=== PATIENT | male | born 1970 | race Caucasian/White ===

== ENCOUNTER 2020-10-29 14:26 | Outpatient (REF) | payer MEDICAID, SELFPAY ==
--- NOTE | ~2020-10-29 | XR_ITS ---
EXAMINATION: XR LUMBOSACRAL SPINE WITH OBLIQUES CLINICAL INFORMATION: Low back pain and right-sided sciatica COMPARISON: None TECHNIQUE: AP, both oblique, and lateral views of the lumbar spine. Lateral view of the lumbosacral junction. FINDINGS: There is mild curvature of the lower lumbar sacral spine to the right. Bone alignment is otherwise normal. No fracture or dislocation is seen. Disc spaces are normal. No pars defect is seen. There is mild lower lumbar spine facet arthritis. XR/XR lumbar spine 4V min IMPRESSION: Mild lower lumbar spine facet arthritis.
== END 2020-10-29 14:27 | disposition home or self-care (01) ==
LOC: HO.XRAY 14:26
PROVIDERS: Visit Provider Registered Nurse Community Health
DX: M54.41 Lumbago with sciatica, right side (principal)
CPT/HCPCS: 72110

== ENCOUNTER 2021-03-05 16:09 | Emergency (ER) | payer MEDICAID, SELFPAY ==
[2021-03-05 16:49] VITALS: BP 128/50; PULSE 81; RESP 18; TEMP 37.1; O2SAT 100; BMI 24.4
--- NOTE | 2021-03-05 17:13 | ED_ITS ---
HPI - Neck Pain/Injury General Chief Complaint: Neck Pain/Injury Stated Complaint: abscess Time Seen by Provider: 03/05/21 17:13 Source: patient Mode of arrival: ambulatory Limitations: no limitations History of Present Illness HPI Narrative: Patient is a 50-year-old male with no significant past medical history who presents with a shaving injury on his right side of his neck. He states he has been using baking soda in peroxide every day to try and heal it, he has also used hydrocortisone. He states that throughout the week it has become red and hard and painful. He has not been shaving during this time. Any denies any fevers. Related Data Previous Rx's Medication Instructions Recorded doxycycline hyclate 100 mg tablet 100 mg PO BID 10 Days #20 tab 03/05/21 Allergies Allergy/AdvReac Type Severity Reaction Status Date / Time No Known Allergies Allergy Unverified 03/19/20 18:45 [No Known Allergies*] Review of Systems Review of Systems: Yes all other systems are reviewed and are negative PMFSH Social History Social History Advance Directives: No Advance Directives Information Provided: No Physical Exam Vital Signs: Vital Signs: Last Vital Signs Temp 98.8 F 03/05/21 16:49 Pulse 81 03/05/21 16:49 Resp 18 03/05/21 16:49 BP 128/50 L 03/05/21 16:49 Pulse Ox 100 03/05/21 16:49 Body Mass Index 24.4 Const: General: cooperative, healthy appearing, comfortable, no acute distress and well developed Orientation/consciousness: patient oriented x3 Limitations: no limitations HENMT: Head: Yes normal to inspection Eyes: General: appearance normal, both eyes and all related structures Neck: Neck: Yes full ROM and Yes no lymphadenopathy Resp: Effort & Inspection: normal respiratory effort and able to speak in complete sentences Skin: General skin exam: no ecchymosis, no erythema and induration (Right- sided base of neck, 2cm oval area of induration, TTP) Neuro: General: patient oriented x3 Extrem: General: Yes normal to inspection Discharge Plan Discharge Clinical Impression: Abscess of skin of neck Patient Disposition: Home, Self-Care Instructions: Abscess Follow-up (ED) Additional Instructions: As discussed, I have sent a prescription to your pharmacy for doxycycline. While you are taking this medication, please do not go out in the sun or your skin will turn red. Please use warm compresses on the area and do not shave while you are taking the antibiotics, you can resume shaving once the abscess is gone. As discussed, please do not continue using hydrogen peroxide on the area. You do not need to use any topical antibiotics. Prescriptions: New doxycycline hyclate 100 mg tablet 100 mg PO BID 10 Days Qty: 20 RF: 0
== END 2021-03-05 17:36 | disposition home or self-care (01) ==
PROVIDERS: Emergency Provider Internal Medicine
DX: L02.11 Cutaneous abscess of neck (principal); M54.2 Cervicalgia; Z79.899 Other long term (current) drug therapy
CPT/HCPCS: 99283

== ENCOUNTER 2025-06-12 10:53 | Outpatient (REF) | payer MEDICAID, SELFPAY ==
--- NOTE | ~2025-06-12 | XR_ITS ---
EXAMINATION: XR HIP 2 OR MORE VIEWS RIGHT HISTORY: pain COMPARISON: There are no prior studies available for comparison. FINDINGS: Two views of the right hip are submitted. Osseous mineralization is normal. There is no fracture or dislocation. There is mild joint space narrowing. The soft tissues are unremarkable. XR/XR hip RT min 2V IMPRESSION: Mild joint space narrowing. Electronically signed by: Cole Wasserman MD 06/12/2025 01:44 PM EST
--- NOTE | ~2025-06-12 | XR_ITS ---
EXAMINATION: XR SHOULDER, RIGHT CLINICAL INFORMATION: pain COMPARISON: None available. TECHNIQUE: Four views of the right shoulder. FINDINGS: Mild superior positioning of the distal clavicle at the acromioclavicular joint. No acute fracture or dislocation. Glenohumeral joint space is maintained. No abnormal soft tissue calcification. XR/XR shoulder RT min 2V IMPRESSION: Mild acromioclavicular malalignment, could reflect indeterminate sprain. Electronically signed by: Miguel Zhou MD 06/12/2025 01:42 PM [facility]
--- NOTE | ~2025-06-12 | XR_ITS ---
EXAMINATION: XR ANKLE, LEFT CLINICAL INFORMATION: pain COMPARISON: 03/07/2018. TECHNIQUE: AP, lateral, and mortise views of the left ankle. FINDINGS: No acute fracture, dislocation, or suspicious bone lesion. There is normal alignment. The ankle mortise is intact. The talar dome is normal. The subtalar joints and calcaneus are intact. Redemonstration of a well-corticated bony density subjacent to the lateral malleolus, likely on the basis of old trauma. Redemonstration of mild calcification of the interosseous membrane of the distal tibia/fibula, also likely on the basis of old injury. There is no soft tissue abnormality. XR/XR ankle LT 2V IMPRESSION: No acute bony or soft tissue abnormalities of the left ankle. Electronically signed by: Amauri Smith MD 06/12/2025 01:44 PM [facility]
== END 2025-06-12 10:54 | disposition home or self-care (01) ==
LOC: HO.HHCX 10:53
PROVIDERS: PCP Nurse Practitioner; Visit Provider Nurse Practitioner
DX: Z91.81 History of falling (principal)
CPT/HCPCS: 73030; 73502; 73600

== ENCOUNTER → 2025-06-12 11:14 | Outpatient (BNV) | payer MEDICAID, SELFPAY | PROVIDERS: PCP Nurse Practitioner; Visit Provider Radiology Diagnostic Radiology | DX: M16.11 Unilateral primary osteoarthritis, right hip (principal); M25.511 Pain in right shoulder; M25.572 Pain in left ankle and joints of left foot | CPT/HCPCS: 73030; 73502; 73600 ==

== ENCOUNTER 2025-06-13 09:13 | Outpatient (REF) | payer MEDICAID, SELFPAY ==
[2025-06-13 09:31] LABS: MANUAL DIFF FLAG NO
[2025-06-13 10:06] LABS: Hematocrit 43.4 % (42.0-52.0); Hemoglobin 15.3 g/dl (14.0-18.0); Imm Gran Abs Auto 0.02 X10*3/uL (0.00-0.03); Imm Gran Pct Auto 0.4 % (0.0-0.4); Lymphocytes Absolute Auto 1.3 X10*3/uL (1.2-4.9); Mean Corpuscular HGB Conc 35.3 g/dl (31.0-36.0); Mean Corpuscular Hemoglobin 32.6 pg (27.0-33.0); Mean Corpuscular Volume 92.3 fL (80.0-98.0); NRBC Abs Auto 0.000 X10*3/uL (0.0-0.012); NRBC Pct Auto 0.0 /100WBC (0.0-0.2); Platelet Count 246 X10*3/uL (160-400); Red Blood Count 4.70 X10*6/uL (4.60-5.80); White Blood Count 4.7 X10*3/uL (4.8-10.8)
[2025-06-13 10:19] LABS: Alanine Aminotransferase 33 U/L (0-40); Albumin Level 4.8 g/dL (3.5-5.0); Alkaline Phosphatase 59 U/L (39-117); Anion Gap 9 (12-20); Aspartate Amino Transferase 30 U/L (5-37); Blood Urea Nitrogen 11 mg/dL (9-16); Calcium 9.0 mg/dL (8.4-10.2); Carbon Dioxide 30 mmol/L (22-29); Chloride 106 mmol/L (96-108); Cholesterol 175 mg/dL (<200); Estimated Glomerular Filt Rate > 60; HDL Cholesterol 51 mg/dL (>40); Potassium 4.2 mmol/L (3.3-5.1); Sodium 141 mmol/L (135-145); Total Protein 7.1 g/dL (6.5-8.0); Triglycerides 85 mg/dL (<150)
[2025-06-13 10:41] LABS: HBS Num1 0.34 mIU/mL (0-7.99); HBc Num1 0.07 S/CO (0.00-0.79); HBsAGNum1 0.41 S/CO (0.00-0.99); HIV Num 1 0.08 S/CO (0.00-0.99); Hepatitis B Surface Antigen Negative (Negative); ~HepC Num1 0.11 S/CO (0.00-0.79); ~Hepatitis B Surface Antibody NONREACTIVE (Nonreactive); ~Hepatitis C Antibody Nonreactive (Nonreactive)
== END 2025-06-13 09:14 | disposition home or self-care (01) ==
LOC: HO.LAB 09:13
PROVIDERS: PCP Nurse Practitioner; Visit Provider Nurse Practitioner
DX: F10.11 Alcohol abuse, in remission (principal); Z13.89 Encounter for screening for other disorder; Z11.4 Encounter for screening for human immunodeficiency virus [HIV]; Z11.59 Encounter for screening for other viral diseases
CPT/HCPCS: 36415; 80053; 80061; 84153; 85025; 86704; 86706; 86803; 87340; 87389